=== PATIENT | male | born 1960 | race Two or more races ===

== ENCOUNTER 2017-07-14 10:33 | Outpatient (CLI) | payer OTHER ==
--- NOTE | 2017-07-14 14:34 | Diagnostic Imaging Report ---
Indication: PAIN Technique: 3 views left hand Comparison: none Findings: No acute fractures. No dislocations. Small calcific density projects and lateral aspect of the radiocarpal joint tiny calcification projects adjacent to the ulnar styloid. Impression: No acute bony trauma
--- NOTE | 2017-07-14 14:34 | Diagnostic Imaging Report ---
Clinical Indication:PAIN Technique: 3 views of the left wrist Comparison: None Findings: No acute fractures. No dislocations. Small calcific density projects at the lateral aspect of the radiocarpal joint. Small ossific density projects adjacent to the ulnar styloid, may represent old injury. The joint spaces are preserved Impression: No acute process
== END 2017-07-14 12:33 | disposition home or self-care (01) ==
LOC: RAD 10:33
DX: M25.542 Pain in joints of left hand (principal); M25.532 Pain in left wrist